=== PATIENT | male | born 1985 | race Caucasian/White ===

== ENCOUNTER 2017-05-07 22:17 | Inpatient (IN) | payer MEDICAID ==
[~2017-05-07] VITALS: Ht 175.3 cm; Wt 78.0 kg
[2017-05-07 23:09] LABS: BASOPHIL % 0.4 % (0-2); PLATELET COUNT 210 x10^3mcL (130-400); RED CELL DISTRIBUTION WIDTH 13.4 % (11.5-14.5)
[2017-05-07 23:15] LABS: CALCIUM 8.1 mg/dL (8.5-10.1); CARBON DIOXIDE 30.8 mmol/L (21-32); CHLORIDE SERUM 105 mmol/L (98-107); CREATININE SERUM 1.3 mg/dL (0.7-1.3); GFR1 > 60 mL/min; GLUCOSE SERUM 120 mg/dL (74-106); POTASSIUM SERUM 3.4 mmol/L (3.5-5.1); SODIUM SERUM 138 mmol/L (136-145)
[2017-05-07 23:20] LABS: ALBUMIN 3.4 g/dL (3.4-5.0); ALKALINE PHOSPHATASE 48 U/L (46-116); ALT/SGPT 69 U/L (16-63); AST/SGOT 127 U/L (15-37); BILIRUBIN TOTAL 0.6 mg/dL (0.20-1.00); TOTAL PROTEIN, SERUM 6.6 g/dL (6.4-8.2)
[2017-05-07 23:29] LABS: CK-MB 43.7 ng/mL (0-3.6)
[2017-05-08 05:33] LABS: MAGNESIUM 2.1 mg/dL (1.8-2.4); PHOSPHOROUS 4.8 mg/dL (2.5-4.9)
[2017-05-08 05:38] LABS: CHOLESTEROL/HDL RATIO 2.8
[2017-05-08 06:24] VITALS: BP 124/72
[2017-05-08 07:24] LABS: FREE T4 1.2 ng/dL (0.76-1.46); FREE THYROXINE INDEX 3.3 ug/dL (1.4-4.5); T4(THYROXINE) 8.6 ug/dL (4.7-13.3)
[2017-05-08 09:19] LABS: T3 TOTAL 1.05 ng/mL
[2017-05-08 09:27] VITALS: BP 106/64
[2017-05-08 12:24] VITALS: BP 114/76
[2017-05-08 15:25] LABS: microscopic required? NO
[2017-05-08 15:34] LABS: UA SPECIFIC GRAVITY <=1.005 (1.005-1.035); urine erythrocyte NEGATIVE (NEGATIVE)
[2017-05-08 15:51] LABS: AMPHETAMINE QUAL UR NONE DETECTED (NEG <=1000)
[2017-05-08 17:12] VITALS: BP 102/63
[2017-05-08 17:58] VITALS: BP 112/69
[2017-05-08 21:39] VITALS: BP 109/60
[2017-05-09 05:51] VITALS: BP 107/59
[2017-05-09 06:21] LABS: BASOPHIL % 1.1 % (0-2); PLATELET COUNT 145 x10^3mcL (130-400); RED CELL DISTRIBUTION WIDTH 13.5 % (11.5-14.5)
[2017-05-09 07:07] LABS: CALCIUM 8.2 mg/dL (8.5-10.1); CARBON DIOXIDE 32.6 mmol/L (21-32); CHLORIDE SERUM 109 mmol/L (98-107); CREATININE SERUM 0.9 mg/dL (0.7-1.3); GFR1 > 60 mL/min; GLUCOSE SERUM 102 mg/dL (74-106); PHOSPHOROUS 3.5 mg/dL (2.5-4.9); POTASSIUM SERUM 4.2 mmol/L (3.5-5.1); SODIUM SERUM 138 mmol/L (136-145)
[2017-05-09 10:05] VITALS: BP 107/60
[2017-05-09 13:40] VITALS: BP 110/74
[2017-05-09 17:40] VITALS: BP 117/77
[2017-05-09 21:23] VITALS: BP 129/74
[2017-05-10 05:23] VITALS: BP 112/63
[2017-05-10 08:09] VITALS: BP 112/63
[2017-05-10 08:42] VITALS: BP 112/63
== END 2017-05-10 08:37 | disposition home or self-care (01) | DRG 775 ==
LOC: ED 22:17 → DU 05-08 04:28
PROVIDERS: Emergency Medicine; ADMIT Family Medicine
DX: F15.10 Other stimulant abuse, uncomplicated (principal); F10.10 Alcohol abuse, uncomplicated; N17.0 Acute kidney failure with tubular necrosis; M62.82 Rhabdomyolysis; E87.6 Hypokalemia; F41.8 Other specified anxiety disorders; R74.0 Nonspecific elevation of levels of transaminase and lactic acid dehydrogenase [LDH]; Z59.0 Homelessness; Z68.25 Body mass index [BMI] 25.0-25.9, adult
CPT/HCPCS: 83880; 84439; J3490; J7030; Q0092

== ENCOUNTER 2017-06-01 16:46 | Emergency (ER) | payer MEDICAID ==
[~2017-06-01] VITALS: Ht 175.3 cm; Wt 72.6 kg
[2017-06-01 17:39] LABS: PLATELET COUNT 305 x10^3mcL (130-400); RED CELL DISTRIBUTION WIDTH 13.8 % (11.5-14.5)
[2017-06-01 17:45] LABS: CALCIUM 9.5 mg/dL (8.5-10.1); CARBON DIOXIDE 26.6 mmol/L (21-32); CHLORIDE SERUM 95 mmol/L (98-107); CREATININE SERUM 1.4 mg/dL (0.7-1.3); GFR1 > 60 mL/min; GLUCOSE SERUM 96 mg/dL (74-106); POTASSIUM SERUM 4.2 mmol/L (3.5-5.1); SODIUM SERUM 134 mmol/L (136-145)
[2017-06-01 17:49] LABS: ALBUMIN 4.3 g/dL (3.4-5.0); ALKALINE PHOSPHATASE 66 U/L (46-116); ALT/SGPT 210 U/L (16-63); AST/SGOT 81 U/L (15-37); BILIRUBIN TOTAL 0.94 mg/dL (0.20-1.00); LIPASE 128 IU/L (73-393); TOTAL PROTEIN, SERUM 8.3 g/dL (6.4-8.2)
[2017-06-01 18:38] VITALS: BP 139/80
== END 2017-06-01 18:38 | disposition home or self-care (01) ==
LOC: ED 16:46
PROVIDERS: Emergency Medicine
DX: M79.1 Myalgia (principal); R53.1 Weakness; R50.9 Fever, unspecified; Z88.8 Allergy status to other drugs, medicaments and biological substances
CPT/HCPCS: J7030; Q0092

== ENCOUNTER 2017-06-01 20:20 | Emergency (ER) | payer MEDICAID ==
[2017-06-02 00:01] VITALS: BP 98/60
== END 2017-06-02 00:01 | disposition home or self-care (01) ==
LOC: ED 20:20
DX: F15.10 Other stimulant abuse, uncomplicated (principal); F41.9 Anxiety disorder, unspecified; Z88.8 Allergy status to other drugs, medicaments and biological substances

== ENCOUNTER 2017-06-02 00:53 | Emergency (ER) | payer MEDICAID ==
[2017-06-02 02:05] LABS: CALCIUM 8.8 mg/dL (8.5-10.1); CARBON DIOXIDE 30.1 mmol/L (21-32); CHLORIDE SERUM 100 mmol/L (98-107); CREATININE SERUM 1.2 mg/dL (0.7-1.3); GFR1 > 60 mL/min; GLUCOSE SERUM 88 mg/dL (74-106); POTASSIUM SERUM 4.2 mmol/L (3.5-5.1); SODIUM SERUM 138 mmol/L (136-145)
[2017-06-02 02:07] LABS: AMPHETAMINE QUAL UR POSITIVE (NEG <=1000)
[2017-06-02 02:13] LABS: BASOPHIL % 0.4 % (0-2); PLATELET COUNT 275 x10^3mcL (130-400)
[2017-06-02 02:34] LABS: ALBUMIN 3.8 g/dL (3.4-5.0); ALKALINE PHOSPHATASE 60 U/L (46-116); ALT/SGPT 179 U/L (16-63); AST/SGOT 80 U/L (15-37); BILIRUBIN TOTAL 0.94 mg/dL (0.20-1.00); TOTAL PROTEIN, SERUM 7.6 g/dL (6.4-8.2)
[2017-06-02 03:31] VITALS: BP 112/73
== END 2017-06-02 03:31 | disposition home or self-care (01) ==
LOC: ED 00:53
PROVIDERS: Emergency Medicine
DX: F15.129 Other stimulant abuse with intoxication, unspecified (principal); Z88.8 Allergy status to other drugs, medicaments and biological substances; Z90.89 Acquired absence of other organs
CPT/HCPCS: 36415

== ENCOUNTER 2018-09-25 18:02 | Inpatient (IN) | payer MEDICAID ==
[~2018-09-25] VITALS: Ht 175.3 cm; Wt 62.1 kg
[2018-09-25 18:43] VITALS: Ht 175.3 cm; Wt 62.1 kg
[2018-09-25 18:57] LABS: microscopic required? NO
[2018-09-25 19:10] LABS: UA SPECIFIC GRAVITY 1.025 (1.005-1.035); urine erythrocyte NEGATIVE (NEGATIVE)
[2018-09-25 19:17] LABS: BASOPHIL % 0.9 % (0-2); PLATELET COUNT 284 x10^3mcL (130-400); RED CELL DISTRIBUTION WIDTH 14.1 % (11.5-14.5)
[2018-09-25 19:19] LABS: AMPHETAMINE QUAL UR POSITIVE (See below)
[2018-09-25 19:30] LABS: CALCIUM 9.1 mg/dL (8.5-10.1); CARBON DIOXIDE 30.8 mmol/L (21-32); CHLORIDE SERUM 100 mmol/L (98-107); CREATININE SERUM 1.2 mg/dL (0.7-1.3); GFR1 > 60 mL/min; GLUCOSE SERUM 109 mg/dL (74-106); POTASSIUM SERUM 3.6 mmol/L (3.5-5.1); SODIUM SERUM 138 mmol/L (136-145)
[2018-09-25 19:37] LABS: ALBUMIN 4.5 g/dL (3.4-5.0); ALKALINE PHOSPHATASE 91 U/L (46-116); ALT/SGPT 47 U/L (16-63); AST/SGOT 39 U/L (15-37); BILIRUBIN TOTAL 0.5 mg/dL (0.20-1.00); TOTAL PROTEIN, SERUM 8.6 g/dL (6.4-8.2)
[2018-09-26 19:04] VITALS: BP 136/83
[2018-09-26 20:14] VITALS: BP 125/75
[2018-09-27 05:57] VITALS: BP 90/56
[2018-09-27 09:12] VITALS: BP 108/70
[2018-09-27 18:00] VITALS: BP 112/64
[2018-09-27 19:53] VITALS: BP 106/53
[2018-09-28 06:41] VITALS: BP 106/64
[2018-09-28 06:44] LABS: CALCIUM 8.4 mg/dL (8.5-10.1); CARBON DIOXIDE 26.2 mmol/L (21-32); CHLORIDE SERUM 109 mmol/L (98-107); CREATININE SERUM 1.1 mg/dL (0.7-1.3); GFR1 > 60 mL/min; GLUCOSE SERUM 97 mg/dL (74-106); PHOSPHOROUS 4.1 mg/dL (2.5-4.9); POTASSIUM SERUM 4.3 mmol/L (3.5-5.1); SODIUM SERUM 142 mmol/L (136-145)
[2018-09-28 06:47] LABS: BASOPHIL % 0.7 % (0-2); PLATELET COUNT 239 x10^3mcL (130-400); RED CELL DISTRIBUTION WIDTH 14.2 % (11.5-14.5)
[2018-09-28 09:52] VITALS: BP 104/65
[2018-09-28 17:08] VITALS: BP 116/71
[2018-09-28 20:52] VITALS: BP 111/71
[2018-09-29 05:49] VITALS: BP 101/62
[2018-09-29 06:36] LABS: BASOPHIL % 0.7 % (0-2); PLATELET COUNT 244 x10^3mcL (130-400)
[2018-09-29 07:03] LABS: CALCIUM 8.4 mg/dL (8.5-10.1); CARBON DIOXIDE 30.8 mmol/L (21-32); CHLORIDE SERUM 106 mmol/L (98-107); CREATININE SERUM 1.1 mg/dL (0.7-1.3); GFR1 > 60 mL/min; GLUCOSE SERUM 89 mg/dL (74-106); MAGNESIUM 1.9 mg/dL (1.8-2.4); PHOSPHOROUS 4.3 mg/dL (2.5-4.9); POTASSIUM SERUM 4.3 mmol/L (3.5-5.1); SODIUM SERUM 139 mmol/L (136-145)
[2018-09-29 09:58] VITALS: BP 110/76
[2018-09-29 16:21] VITALS: BP 110/76
== END 2018-09-29 16:48 | disposition home or self-care (01) | DRG 812 ==
LOC: ED 18:02 → MU 09-26 15:18
PROVIDERS: Emergency Medicine; Family Medicine; ADMIT Internal Medicine
DX: T43.621A Poisoning by amphetamines, accidental (unintentional), initial encounter (principal); G92 Toxic encephalopathy; R45.851 Suicidal ideations; F32.9 Major depressive disorder, single episode, unspecified; F15.129 Other stimulant abuse with intoxication, unspecified; F17.210 Nicotine dependence, cigarettes, uncomplicated; Y92.9 Unspecified place or not applicable
CPT/HCPCS: G0480; J7030

== ENCOUNTER 2020-04-06 11:41 | Emergency (ER) | payer SELFPAY ==
[~2020-04-06] VITALS: Ht 175.3 cm; Wt 72.6 kg
[2020-04-06 11:44] VITALS: Ht 175.3 cm; Wt 72.6 kg
[2020-04-06 12:12] LABS: BASOPHIL % 0.3 % (0-2); RED CELL DISTRIBUTION WIDTH 14.1 % (11.5-14.5)
[2020-04-06 12:26] LABS: PLATELET COUNT 407 x10^3mcL (130-400)
[2020-04-06 12:30] LABS: ALBUMIN 3.7 g/dL (3.4-5.0); ALKALINE PHOSPHATASE 64 U/L (46-116); ALT/SGPT 28 U/L (16-63); AST/SGOT 22 U/L (15-37); BILIRUBIN TOTAL 0.5 mg/dL (0.20-1.00); CALCIUM 9.2 mg/dL (8.5-10.1); CARBON DIOXIDE 33.7 mmol/L (21-32); CHLORIDE SERUM 103 mmol/L (98-107); CREATININE SERUM 1.2 mg/dL (0.7-1.3); GFR1 > 60 mL/min; GLUCOSE SERUM 90 mg/dL (74-106); POTASSIUM SERUM 4.2 mmol/L (3.5-5.1); SODIUM SERUM 143 mmol/L (136-145); TOTAL PROTEIN, SERUM 7.7 g/dL (6.4-8.2)
[2020-04-06 14:49] LABS: UA SPECIFIC GRAVITY 1.025 (1.005-1.035); microscopic required? YES; urine erythrocyte NEGATIVE (NEGATIVE)
[2020-04-06 14:52] LABS: AMPHETAMINE QUAL UR POSITIVE (See below)
[2020-04-07 15:06] VITALS: BP 113/53
== END 2020-04-07 15:06 | disposition home or self-care (01) ==
LOC: ED 11:41
PROVIDERS: Specialist
DX: F15.10 Other stimulant abuse, uncomplicated (principal); R45.851 Suicidal ideations; F32.9 Major depressive disorder, single episode, unspecified; N18.9 Chronic kidney disease, unspecified; Z90.89 Acquired absence of other organs; Z88.8 Allergy status to other drugs, medicaments and biological substances
CPT/HCPCS: G0480; J0515; J1630; J2060; U0003-CS